=== PATIENT | male | born 1945 | race Caucasian/White ===

== ENCOUNTER 2018-07-02 17:28 | Inpatient (IN) | payer OTHER ==
--- NOTE | 2018-07-02 18:24 | HP ---
CIWA Score Nausea/Vomitin Muscle Tremors: 2 Anxiety: 2 Agitation: 2 Paroxysmal Sweats: 1-Minimal Palms Moist Orientation: 0-Oriented Tacttile Disturbances: 1-Very Mild Itch/Numbness Auditory Disturbances: 1-Very Mild Visual Disturbances: 0-None Headache: 2-Mild CIWA-Ar Total Score: 14 - Admission Criteria [facility] Guidelines: Admission for Medically Managed Detox: Requires at least one of the followin. CIWA greater than 12 2. Seizures within the past 24 hours 3. Delirium tremens within the past 24 hours 4. Hallucinations within the past 24 hours 5. Acute intervention needed for co occurring medical disorder 6. Acute intervention needed for co occurring psychiatric disorder 7. Severe withdrawal that cannot be handled at a lower level of care (continued vomiting, continued diarrhea, abnormal vital signs) requiring intravenous medication and/or fluids 8. Patient presents the following: CIWA greater than 12 Admission Criteria Met: Admission criteria met Admission ROS [facility] - HPI Chief Complaint: i need help to stop drinking alcohol Allergies/Adverse Reactions: Allergies Allergy/AdvReac Type Severity Reaction Status Date / Time No Known Allergies Allergy Verified 07/02/18 18:17 History of Present Illness: this 73 years old male with alcohol dependence,need help to stop drinking,seen in [facility] today,last detox [facility] in 2014, have abdominal pain and vomiting ,seen in [facility] and clear to come in for detox longest period of sobriety 10 years history of anxiety and depression,did not take medication for 1 week plan for rehab after detox Exam Limitations: No Limitations - Ebola screening Have you traveled outside of the country in the last 21 days: No (N) Have you had contact with anyone from an Ebola affected area: No Do you have a fever: No - Review of Systems Constitutional: Loss of Appetite, Malaise, Night Sweats, Changes in sleep, Weakness EENT: reports: Nose Congestion Respiratory: reports: No Symptoms reported Cardiac: reports: No Symptoms Reported GI: reports: Nausea, Poor Appetite, Vomiting, Abdominal cramping : reports: No Symptoms Reported, Other (bph) Musculoskeletal: reports: Back Pain, Muscle Pain Integumentary: reports: Dryness Neuro: reports: Headache, Tremors Endocrine: reports: No Symptoms Reported Hematology: reports: No Symptoms Reported Psychiatric: reports: No Sypmtoms Reported, Judgement Intact, Mood/Affect Appropiate, Orientated x3, Agitated, Anxious, Depressed Patient History - Patient Medical History Hx Anemia: No Hx Asthma: No Hx Chronic Obstructive Pulmonary Disease (COPD): No Hx Cancer: No Hx Cardiac Disorders: No Hx Congestive Heart Failure: No Hx Hypertension: No Hx Hypercholesterolemia: No Hx Pacemaker: No HX Cerebrovascular Accident: No Hx Seizures: No Hx Dementia: No Hx Diabetes: No Hx Gastrointestinal Disorders: No Hx Liver Disease: No Hx Genitourinary Disorders: Yes (bph) Hx Sexually Transmitted Disorders: No Hx Renal Disease (ESRD): No Hx Thyroid Disease: No Hx Human Immunodeficiency Virus (HIV): No (2017 negative) Hx Hepatitis C: No Hx Depression: Yes (anxiety) Hx Suicide Attempt: No Hx Bipolar Disorder: No Hx Schizophrenia: No Other Medical History: no suicidal,no homicidal - Patient Surgical History Past Surgical History: Yes Other Surgical History: left inguinalhernia repair at age of 54 - PPD History Previous Implant?: Yes Documented Results: Negative w/o proof Implanted On Prior [facility] Admission?: No PPD to be Administered?: Yes - Smoking Cessation Smoking history: Never smoked - Substance & Tx. History Hx Alcohol Use: Yes Hx Substance Use: No Substance Use Type: Alcohol Hx Substance Use Treatment: Yes (2014 [facility]) - Substances Abused Alcohol Route: Oral Frequency: Daily Amount used: 1 litre of white wine Age of first use: 18 Date of Last Use: 07/02/18 Family Disease History - Family Disease History Family Disease History: Other: Father (alcohol,), Mother (alcohol, ) Admission Physical Exam S - Vital Signs Vital Signs: Vital Signs Temperature 97 F L 07/03/18 06:26 Pulse Rate 54 L 07/03/18 06:26 Respiratory Rate 18 07/03/18 06:26 Blood Pressure 121/67 07/03/18 06:26 O2 Sat by Pulse Oximetry (%) - Physical General Appearance: Yes: Moderate Distress, Tremorous, Irritable, Anxious HEENTM: Yes: Normal ENT Inspection, SHELLY, Pharynx Normal Respiratory: Yes: Lungs Clear, Normal Breath Sounds, No Respiratory Distress Neck: Yes: Within Normal Limits, Supple, Trachea in good position Breast: Yes: Within Normal Limits Cardiology: Yes: Within Normal Limits, Regular Rhythm, Regular Rate, S1, S2 Abdominal: Yes: Normal Bowel Sounds, Non Tender, Soft, Organomegaly, Surgical Scar Genitourinary: Yes: Within Normal Limits Back: Yes: Muscle Spasm Musculoskeletal: Yes: Back pain, Muscle Pain Extremities: Yes: Within Normal Limits, Normal Range of Motion, Tremors Neurological: Yes: biological inspector II-XII NML intact, Alert, Motor Strength 5/5 Integumentary: Yes: Dry Lymphatic: Yes: Within Normal Limits - Diagnostic (1) Alcohol dependence with uncomplicated withdrawal Current Visit: Yes Status: Acute (2) Anxiety and depression Current Visit: Yes Status: Acute (3) Insomnia Current Visit: Yes Status: Acute (4) History of left inguinal hernia repair Current Visit: Yes Status: Acute (5) BPH (benign prostatic hyperplasia) Current Visit: Yes Status: Acute Cleared for Admission S - Detox or Rehab [facility] Level of Care: Medically Managed Detox Regimen/Protocol: Librium
[2018-07-02] MEDS ORDERED: MAGNESIUM CITRATE 300 ML BOTTLE PO PRN (18:32)
[2018-07-02] MEDS ORDERED: MAGNESIUM HYDROX 2400MG/30ML ORAL SUSPENSION 30 ML CUP PO PRN (18:32)
[2018-07-02] MEDS ORDERED: P-EPHED 60MG/TRIPROLIDI 2.5MG TABLET PO PRN (18:32)
[2018-07-02] MEDS ORDERED: LOPERAMIDE HCL 2 MG CAPSULE PO PRN (18:32)
[2018-07-02] MEDS ORDERED: ACETAMINOPHEN 325 MG TABLET (FP) PO PRN (18:32)
[2018-07-02] MEDS ORDERED: IBUPROFEN 400 MG TABLET (FP) PO PRN (18:32)
[2018-07-02] MEDS ORDERED: guaiFENesin/D-METHORPHAN HB 10 ML UNIT-DOSE CUPS PO PRN (18:32)
[2018-07-02] MEDS ORDERED: MENTHOL/PHENOL 1 EACH UD MM PRN (18:32)
[2018-07-02] MEDS ORDERED: hydrOXYzine PAMOATE 50 MG CAPSULE (FP) PO PRN (18:32)
[2018-07-02 18:39] VITALS: BMI 29.7
[2018-07-02] MEDS: chlordiazePOXIDE HCL 25 MG CAPSULE PO PRN ×2 (19:48→22:58)
[2018-07-02] MEDS: THIAMINE HCL 100 MG TABLET (FP) PO SCH (22:27)
[2018-07-02] MEDS: chlordiazePOXIDE HCL 25 MG CAPSULE PO SCH (22:28)
[2018-07-02] MEDS: MELATONIN 5 MG TABLETS PO PRN (22:35)
[2018-07-03] MEDS: chlordiazePOXIDE HCL 25 MG CAPSULE PO SCH ×4 (05:51→22:08)
[2018-07-03] MEDS ORDERED: ONDANSETRON *ODT* 4 MG TABLET SL ONE (08:42)
[2018-07-03] MEDS ORDERED: RANITIDINE HCL 150 MG TABLET (FP) PO ONE (08:44)
[2018-07-03] MEDS: TAMSULOSIN HCL 0.4 MG CAP PO SCH (08:48)
[2018-07-03] MEDS: RANITIDINE HCL 150 MG TABLET (FP) PO SCH ×2 (10:18→22:08)
[2018-07-03] MEDS: PRENATAL VITAMINS W/ FOLIC ACID TABLET (FP) PO SCH (10:18)
[2018-07-03 10:32] LABS: HEMATOCRIT 40.9 % (35.4-49); HEMOGLOBIN 13.1 GM/dL (11.7-16.9); MCH 32.4 pg (25.7-33.7); MEAN CELL VOLUME 101.3 fl (80-96); MEAN PLT VOLUME 8.6 fl (7.5-11.1); PLATELET COUNT 214 K/MM3 (134-434); RBC 4.03 M/mm3 (4.00-5.60); RDW 13.9 % (11.9-15.9)
--- NOTE | 2018-07-03 11:00 | EKG ---
Test Reason : Blood Pressure : / mmHG Vent. Rate : 088 BPM Atrial Rate : 088 BPM P-R Int : 160 ms QRS Dur : 090 ms QT Int : 386 ms P-R-T Axes : 047 -01 045 degrees QTc Int : 467 ms SINUS RHYTHM WITH OCCASIONAL PREMATURE VENTRICULAR COMPLEXES OTHERWISE NORMAL ECG NO PREVIOUS ECGS AVAILABLE Confirmed by FINN SINHA, TAWANA ([id number]) on 07/03/2018 11:00:30 AM Referred By: Confirmed By:TAWANA BRISENO MD
[2018-07-03 11:04] LABS: ALBUMIN 3.1 g/dl (3.4-5.0); ALK PHOS 72 U/L (45-117); ANION GAP 9 MMOL/L (8-16); BILIRUBIN,TOTAL 0.6 mg/dL (0.2-1); BLOOD UREA NITROGEN 15 mg/dL (7-18); CALCIUM 8.3 mg/dL (8.5-10.1); CHLORIDE 108 mmol/L (98-107); CO2 25 mmol/L (21-32); GLUCOSE,RANDOM 115 mg/dL (74-106); POTASSIUM 4.1 mmol/L (3.5-5.1); SGOT/AST 23 U/L (15-37); SGPT/ALT 28 U/L (13-61); SODIUM 142 mmol/L (136-145)
--- NOTE | 2018-07-03 11:57 | PN ---
S CIWA - CIWA Score Nausea/Vomitin Muscle Tremors: 3 Anxiety: 3 Agitation: 3 Paroxysmal Sweats: 3 Orientation: 0-Oriented Tacttile Disturbances: 0-None Auditory Disturbances: 0-None Visual Disturbances: 0-None Headache: 0-None Present CIWA-Ar Total Score: 15 [facility] Progress Note (SOAP) Subjective: SHAKES VOMITING INTERRUPTED DISTURBANCE Objective: 07/03/18 11:53 IN BED ANXIOUS REQUESTING "MY PROTONIX" Assessment: 07/03/18 11:57 WITHDRAWAL SX Plan: CONTINUE DETOX ZANTAC BID ALREADY ORDERED INCREASE HYDRATION
--- NOTE | 2018-07-03 18:29 | CONSULT ---
[facility] Psychiatric Consult - Data Date of interview: 07/03/18 Admission source: [facility] Identifying data: First admission to [facility] for this 73 y/o male seeking detoxification treatment on for alciohol dependence. Patient is single (never ), no children, homeless (recently evicted from rented roorm and sent to a long term), unemployed (retired from restaurant business) and supported on his Social Security benefits. Substance Abuse History: Confirmed by patient in this sesssion. Details in current [facility] report : Smoking history: Never smoked. - Substance & Tx. History. Hx Alcohol Use: Yes. Hx Substance Use: No. Substance Use Type: Alcohol. Hx Substance Use Treatment: Yes (2014 [facility]). - Substances Abused. * * Alcohol. Route: Oral. Frequency: Daily. Amount used: 1 litre of white wine. Age of first use: 18. Date of Last Use: 07/02/18 Medical History: Benign prostatic hyperplasia and a history of left inguinal herniorraphy (at age 54). Psychiatric History: Patient admits to a history of two psychiatric hospitalizations at [facility]. Diagnosed with MDD and Anxiety Disorder. Prescribed zoloft 50 mg/day. Non-adherent for " a little over three weeks ". Mr Reed indicates that he did not keep his appointment with his assigned [facility] care clinic. Dropped out of treatment (no contact with psychiatrists). Patient denies history of suicide attempts. Physical/Sexual Abuse/Trauma History: Stressors : dispute with landlord, homelessness, no family support, alcohol addiction. Additional Comment: Toxicology : none. Mental Status Exam - Mental Status Exam Alert and Oriented to: Time, Place, Person Cognitive Function: Good Patient Appearance: Unkempt, Disheveled (obese) Mood: Withdrawn, Apprehensive Affect: Mood Congruent, Constricted Patient Behavior: Fatigued, Appropriate (good historian ), Cooperative Speech Pattern: Clear, Appropriate (articulate) Voice Loudness: Normal Thought Process: Intact, Goal Oriented Thought Disorder: Not Present Hallucinations: Denies Suicidal Ideation: Denies Homicidal Ideation: Denies Insight/Judgement: Fair Sleep: Well Appetite: Good Muscle strength/Tone: Normal Gait/Station: Normal Psychiatric Findings - Problem List ([place] 1, 2,3) (1) Alcohol dependence with uncomplicated withdrawal Current Visit: Yes Status: Acute (2) Alcohol-induced mood disorder Current Visit: Yes Status: Suspected (3) MDD (major depressive disorder) Current Visit: Yes Status: Chronic Comment: As per self-report. Not adherent to OPD care. Declines medication (sertraline). (4) Insomnia Current Visit: Yes Status: Chronic Comment: Much improved on medications since admission to [facility] (self-report). - Initial Treatment Plan Initial Treatment Plan: Psychoeducation. Sleep hygiene. Detoxification in progress. Support and reassurance. Insomnia is addressed with melatonin at bedtime. Observation.
[2018-07-03] MEDS: MELATONIN 5 MG TABLETS PO PRN (22:08)
[2018-07-03] MEDS: THIAMINE HCL 100 MG TABLET (FP) PO SCH (22:09)
[2018-07-04] MEDS: chlordiazePOXIDE HCL 25 MG CAPSULE PO SCH ×3 (05:11→16:58)
[2018-07-04] MEDS: PRENATAL VITAMINS W/ FOLIC ACID TABLET (FP) PO SCH (10:22)
[2018-07-04] MEDS: TAMSULOSIN HCL 0.4 MG CAP PO SCH (10:22)
[2018-07-04] MEDS: RANITIDINE HCL 150 MG TABLET (FP) PO SCH (10:23)
--- NOTE | 2018-07-04 15:35 | PN ---
[facility] CIWA - CIWA Score Nausea/Vomitin-Mild Nausea/No Vomiting Muscle Tremors: 3 Anxiety: 3 Agitation: 2 Paroxysmal Sweats: 2 Orientation: 0-Oriented Tacttile Disturbances: 0-None Auditory Disturbances: 0-None Visual Disturbances: 0-None Headache: 2-Mild CIWA-Ar Total Score: 13 [facility] Progress Note (SOAP) Subjective: Anxious, interrupted sleep, sweating Objective: 07/04/18 15:34 Last Vital Signs Temp Pulse Resp BP Pulse Ox 98.6 F 85 18 100/65 07/04/18 13:06 07/04/18 13:06 07/04/18 13:06 07/04/18 13:06 Laboratory Tests 07/03/18 07/03/18 07/03/18 07:00 07:00 07:00 WBC 4.0 RBC 4.03 Hgb 13.1 Hct 40.9 MCV 101.3 H MCH 32.4 MCHC 32.0 RDW 13.9 Plt Count 214 MPV 8.6 Sodium 142 Potassium 4.1 Chloride 108 H Carbon Dioxide 25 Anion Gap 9 BUN 15 Creatinine 1.0 Creat Clearance w eGFR > 60 Random Glucose 115 H Calcium 8.3 L Total Bilirubin 0.6 AST 23 ALT 28 Alkaline Phosphatase 72 Total Protein 6.0 L Albumin 3.1 L RPR Titer Nonreactive Labs reviewed Assessment: 07/04/18 15:34 Withdrawal symptoms Plan: Continue detox Encouraged PO water intake
[2018-07-04] MEDS: MAG HYDROX/AL HYDROX/SIMETH 30 ML UNIT-DOSE CUP PO PRN (17:00)
[2018-07-04] MEDS ORDERED: RANITIDINE HCL 150 MG TABLET (FP) PO SCH (17:15)
[2018-07-04] MEDS: chlordiazePOXIDE 5 MG CAPSULE PO SCH (22:12)
[2018-07-04] MEDS: MELATONIN 5 MG TABLETS PO PRN (22:12)
[2018-07-04] MEDS: THIAMINE HCL 100 MG TABLET (FP) PO SCH (22:12)
[2018-07-04 23:16] LABS: URINE APPEARANCE CLEAR; URINE BILIRUBIN NEGATIVE (<2.0 mg/dL); URINE COLOR LTYELLOW; URINE GLUCOSE (UA) NEGATIVE (NEGATIVE); URINE KETONE NEGATIVE (NEGATIVE); URINE LEUK ESTERASE NEGATIVE (NEGATIVE); URINE NITRITE NEGATIVE (NEGATIVE); URINE PROTEIN NEGATIVE (NEGATIVE); URINE UROBILINOGEN NEGATIVE mg/dL (0.2-1.0)
[2018-07-05] MEDS: chlordiazePOXIDE 5 MG CAPSULE PO SCH ×3 (05:37→17:04)
[2018-07-05] MEDS ORDERED: RANITIDINE HCL 150 MG TABLET (FP) PO SCH (06:00)
--- NOTE | 2018-07-05 09:29 | PN ---
[facility] Progress Note (SOAP) Subjective: patient denies alcohol withdrawal sx patient stated that he has chronic GI problem and needs zantac at 6 amd and 3 pm which preventing after meal nausea even vomiting if without zantac before the meal patient reported that he is taking protonix at home zantac helps aftermeal GI distress Objective: 07/05/18 09:27 Vital Signs Temperature 98.8 F 07/05/18 06:21 Pulse Rate 50 L 07/05/18 06:21 Respiratory Rate 19 07/05/18 06:21 Blood Pressure 127/66 07/05/18 06:21 O2 Sat by Pulse Oximetry (%) Laboratory Last Values WBC 4.0 K/mm3 (4.0-10.0) 07/03/18 07:00 RBC 4.03 M/mm3 (4.00-5.60) 07/03/18 07:00 Hgb 13.1 GM/dL (11.7-16.9) 07/03/18 07:00 Hct 40.9 % (35.4-49) 07/03/18 07:00 MCV 101.3 fl (80-96) H 07/03/18 07:00 MCH 32.4 pg (25.7-33.7) 07/03/18 07:00 MCHC 32.0 g/dl (32.0-35.9) 07/03/18 07:00 RDW 13.9 % (11.9-15.9) 07/03/18 07:00 Plt Count 214 K/MM3 (134-434) 07/03/18 07:00 MPV 8.6 fl (7.5-11.1) 07/03/18 07:00 Sodium 142 mmol/L (136-145) 07/03/18 07:00 Potassium 4.1 mmol/L (3.5-5.1) 07/03/18 07:00 Chloride 108 mmol/L (98-107) H 07/03/18 07:00 Carbon Dioxide 25 mmol/L (21-32) 07/03/18 07:00 Anion Gap 9 MMOL/L (8-16) 07/03/18 07:00 BUN 15 mg/dL (7-18) 07/03/18 07:00 Creatinine 1.0 mg/dL (0.55-1.3) 07/03/18 07:00 Creat Clearance w eGFR > 60 (>60) 07/03/18 07:00 Random Glucose 115 mg/dL (74-106) H 07/03/18 07:00 Calcium 8.3 mg/dL (8.5-10.1) L 07/03/18 07:00 Total Bilirubin 0.6 mg/dL (0.2-1) 07/03/18 07:00 AST 23 U/L (15-37) 07/03/18 07:00 ALT 28 U/L (13-61) 07/03/18 07:00 Alkaline Phosphatase 72 U/L (45-117) 07/03/18 07:00 Total Protein 6.0 g/dl (6.4-8.2) L 07/03/18 07:00 Albumin 3.1 g/dl (3.4-5.0) L 07/03/18 07:00 Urine Color Ltyellow 07/04/18 16:27 Urine Appearance Clear 07/04/18 16:27 Urine pH 5.0 (5.0-8.0) 07/04/18 16:27 Ur Specific Distant 1.021 (1.010-1.035) 07/04/18 16:27 Urine Protein Negative (NEGATIVE) 07/04/18 16:27 Urine Glucose (UA) Negative (NEGATIVE) 07/04/18 16:27 Urine Ketones Negative (NEGATIVE) 07/04/18 16:27 Urine Blood Negative (NEGATIVE) 07/04/18 16:27 Urine Nitrite Negative (NEGATIVE) 07/04/18 16:27 Urine Bilirubin Negative (<2.0 mg/dL) 07/04/18 16:27 Urine Urobilinogen Negative mg/dL (0.2-1.0) 07/04/18 16:27 Ur Leukocyte Esterase Negative (NEGATIVE) 07/04/18 16:27 RPR Titer Nonreactive (NONREACTIVE) 07/03/18 07:00 lab noted Assessment: 07/05/18 09:27 change zantac to 6 am and 3 pm additional with carafate before lunch Plan: medically supervised detox discuss negative alcohol misues related to GI distress
[2018-07-05] MEDS: PRENATAL VITAMINS W/ FOLIC ACID TABLET (FP) PO SCH (10:17)
[2018-07-05] MEDS: TAMSULOSIN HCL 0.4 MG CAP PO SCH (10:17)
[2018-07-05] MEDS ORDERED: SUCRALFATE 1 GM TABLET (FP) PO SCH (12:00)
[2018-07-05] MEDS: MAG HYDROX/AL HYDROX/SIMETH 30 ML UNIT-DOSE CUP PO PRN ×2 (12:03→17:06)
[2018-07-05] MEDS ORDERED: ONDANSETRON *ODT* 4 MG TABLET SL ONE (13:50)
[2018-07-05] MEDS ORDERED: TRIMETHOBENZAMIDE HCL 200MG/2ML INJ IM PRN (13:51)
[2018-07-05] MEDS: RANITIDINE HCL 150 MG TABLET (FP) PO SCH (15:32)
[2018-07-05] MEDS: THIAMINE HCL 100 MG TABLET (FP) PO SCH (22:04)
[2018-07-05] MEDS: chlordiazePOXIDE HCL 10 MG CAPSULE PO SCH (22:04)
[2018-07-05] MEDS: MELATONIN 5 MG TABLETS PO PRN (22:04)
[2018-07-06] MEDS: RANITIDINE HCL 150 MG TABLET (FP) PO SCH (05:41)
[2018-07-06] MEDS: chlordiazePOXIDE HCL 10 MG CAPSULE PO SCH (05:41)
[2018-07-06 09:53] VITALS: BP 116/73; PULSE 93; TEMP 96.8
--- NOTE | 2018-07-06 10:25 | DS ---
[facility] Detox Discharge Summary Admission Date: 07/02/18 - History Present History: Alcohol Dependence Additional Comments: Patient discharged today. As per patient, he is returning to his group home and doesn't need rehab or any outpatient services. Patient is stable for discharge. Patient instructed to follow up with his PCP within 1-2 weeks. Pertinent Past History: Alcohol dependence - Physical Exam Results Vital Signs: Vital Signs Temperature 96.8 F L 07/06/18 09:48 Pulse Rate 93 H 07/06/18 09:48 Respiratory Rate 20 07/06/18 09:48 Blood Pressure 116/73 07/06/18 09:48 O2 Sat by Pulse Oximetry (%) Pertinent Admission Physical Exam Findings: Withdrawal symptoms Laboratory Tests 07/03/18 07/03/18 07/03/18 07:00 07:00 07:00 WBC 4.0 RBC 4.03 Hgb 13.1 Hct 40.9 MCV 101.3 H MCH 32.4 MCHC 32.0 RDW 13.9 Plt Count 214 MPV 8.6 Sodium 142 Potassium 4.1 Chloride 108 H Carbon Dioxide 25 Anion Gap 9 BUN 15 Creatinine 1.0 Creat Clearance w eGFR > 60 Random Glucose 115 H Calcium 8.3 L Total Bilirubin 0.6 AST 23 ALT 28 Alkaline Phosphatase 72 Total Protein 6.0 L Albumin 3.1 L Urine Color Urine Appearance Urine pH Ur Specific University Urine Protein Urine Glucose (UA) Urine Ketones Urine Blood Urine Nitrite Urine Bilirubin Urine Urobilinogen Ur Leukocyte Esterase RPR Titer Nonreactive 07/04/18 16:27 WBC RBC Hgb Hct MCV MCH MCHC RDW Plt Count MPV Sodium Potassium Chloride Carbon Dioxide Anion Gap BUN Creatinine Creat Clearance w eGFR Random Glucose Calcium Total Bilirubin AST ALT Alkaline Phosphatase Total Protein Albumin Urine Color Ltyellow Urine Appearance Clear Urine pH 5.0 Ur Specific University 1.021 Urine Protein Negative Urine Glucose (UA) Negative Urine Ketones Negative Urine Blood Negative Urine Nitrite Negative Urine Bilirubin Negative Urine Urobilinogen Negative Ur Leukocyte Esterase Negative RPR Titer Labs reviewed - Treatment Hospital Course: Detox Protocol Followed, Detoxed Safely, Responded well, Discharged Condition Good - Medication Discharge Medications: Ambulatory Orders Sertraline HCl [Zoloft -] 50 mg PO DAILY 07/02/18 Tamsulosin HCl [Flomax -] 0.4 mg PO DAILY #14 [id number] 07/05/18 - Diagnosis (1) Alcohol dependence with uncomplicated withdrawal Current Visit: Yes Status: Acute (2) Anxiety and depression Current Visit: Yes Status: Chronic (3) Insomnia Current Visit: Yes Status: Chronic - AMA Did Patient Leave Against Medical Advice: No (Patient instructed to follow up with PCP within 1-2 weeks)
== END 2018-07-06 10:41 | disposition home or self-care (01) | DRG 897 ==
LOC: YASAS 17:28 → Y3N 18:50
PROVIDERS: ADMIT Neuromusculoskeletal Medicine & OMM; ATTEND Neuromusculoskeletal Medicine & OMM
PROC: HZ2ZZZZ Detoxification Services for Substance Abuse Treatment (ICD-10-PCS; principal; 2018-07-02)
DX: F10.230 Alcohol dependence with withdrawal, uncomplicated (principal); F41.8 Other specified anxiety disorders; F32.9 Major depressive disorder, single episode, unspecified; F10.24 Alcohol dependence with alcohol-induced mood disorder; G47.00 Insomnia, unspecified; N40.0 Benign prostatic hyperplasia without lower urinary tract symptoms; Z98.890 Other specified postprocedural states; Z59.0 Homelessness
CPT/HCPCS: 36415; 80053; 81003; 85027; 86593; 93005; 93010; Q0162